=== PATIENT | female | born 1950 | race American Indian/Alaskan Native ===

== ENCOUNTER 2016-10-09 11:15 | Day surgery (SDC) | payer OTHER ==
[~2016-10-09 11:15] MED LIST: ANCEF/STERILE WATER 2 GM/20 ML IV NR; NACL 0.9% 1000 ML 1,000 ML IV SCH; NACL 0.9% IR ONE; PEPCID PO NR
--- NOTE | 2016-10-09 12:19 | Anesthesia Consultation ---
Anesthesia Consult and Med Hx Date of service: 10/09/16 - Airway Anesthetic Teeth Evaluation: Dentures ROM Head & Neck: Adequate Mental/Hyoid Distance: Adequate Mallampati Class: Class II Intubation Access Assessment: Probably Good - Pulmonary Exam CTA: Yes - Cardiac Exam Cardiac Exam: RRR - Pre-Operative Health Status ASA Pre-Surgery Classification: ASA2 Proposed Anesthetic Plan: General - Pulmonary Hx Smoking: Yes (STOPPED X 20 YRS- 1/2PPD X 13 YRS) Hx Sleep Apnea: No (PRISCILLA PRE SCREEN LOW RISK) - Cardiovascular System Hx Hypertension: Yes (X 5 YRS) - Endocrine Hx Non-Insulin Dependent Diabetes: Yes - Other Systems Hx Cancer: No
--- NOTE | 2016-10-09 12:19 | Anesthesia Day of Surgery ---
Anesthesia Day of Surgery - Day of Surgery Patient Examined: Yes Patient H&P Reviewed: Yes Patient is NPO: Yes
[2016-10-09] MEDS ORDERED: DIPRIVAN 10 MG/ML IV ONE (12:45)
[2016-10-09] MEDS ORDERED: ZEMURON IV ONE (12:45)
[2016-10-09] MEDS ORDERED: XYLOCAINE MPF 2% ONE (12:45)
[2016-10-09] MEDS ORDERED: VERSED IV NR (13:00)
[2016-10-09] MEDS ORDERED: PEPCID PO NR (13:00)
[2016-10-09] MEDS ORDERED: NEO SYNEPHRINE/NS Syringe(OR USE) IV ONE (13:00)
[2016-10-09] MEDS ORDERED: DILAUDID ONE (13:08)
[2016-10-09] MEDS ORDERED: MARCAINE-EPI/PF 0.25%-1:200,000 INFILTRATI ONE (13:13)
[2016-10-09] MEDS ORDERED: DECADRON ONE (13:44)
[2016-10-09] MEDS ORDERED: MARCAINE-EPI 0.25%-1:200,000 INFILTRATI ONE ×2 (13:50)
[2016-10-09] MEDS ORDERED: NACL 0.9% 1000 ML 1,000 ML ONE (14:02)
[2016-10-09] MEDS ORDERED: ZOFRAN ONE (14:13)
[2016-10-09] MEDS ORDERED: TORADOL ONE (14:38)
[2016-10-09] MEDS ORDERED: NACL 0.9% IR ONE (14:43)
[2016-10-09] MEDS ORDERED: ROBINUL ONE (14:44)
[2016-10-09] MEDS ORDERED: BLOXIVERZ ONE (14:44)
--- NOTE | 2016-10-09 14:54 | Operative Report ---
Operative Report Operative Report: [Date of procedure: 10/09/2016 Pre-operative diagnosis: Incarcerated ventral hernia 2 Post-operative diagnosis: Same Procedure name(s): Laparoscopic ventral hernia repair with mesh 2 Surgeon: Ray Eng MD Singer And Unloader: None Anesthesia: General, 0.25% Marcaine EBL: Minimal Complications: None Instrument Count: Correct Indications: This is a 66 -year-old patient presents with a incarcerated ventral hernia 2 that is now causing symptoms. The patient was offered the above-named procedures possible treatment modality. The risks and benefits discussed until all questions were answered. The patient was subsequent brought to the OR. Findings: As above Procedure: The patient was placed supine on the table. We reviewed the informed consent. After adequate anesthesia. Patient was prepped and draped in the usual sterile fashion. A 5 mm incision was made in the right quadrant. Using Optiview technique we placed a 5 mm port at this position. The abdomen was then insufflated to 15 mm mercury. We introduced the camera and examined the abdomen. We began examining the defect. At this time we placed a 10 mm right lower quadrant port under direct vision and after infiltration of local anesthetic. A 5 mm left upper quadrant port was also placed. We then decreased the intra-abdominal pressure. The defects were identified. The most superior was noted to be at the level of the falciform ligament. This contained falciform ligament fat that was attached to the peritoneal surface. It was also noted to be incarcerated. Using a combination of external pressure and internal retraction, we partially reduced the contents. Electrocautery was used to lyse the attachments freeing the hernia sac. The inferior hernia was noted to have minimal attachments and this was reduced with minimal difficulty. We then chose a 6 x 8" proceed mesh with a central 0 Vicryl transfascial stitch. This was introduced into the abdomen through the 10 mm port. We used a suture passer to center the mesh over the middle of the defects, effectively straddling both hernias. We used a suture to approximate the most superior hernia. We then secured the edges of the mesh using a pro-tack device. A double crown technique was used to place the tacks. We had good coverage of the hernia defect. We then evacuated the insufflation. Removed all ports and closed all port sites using a 4-0 Monocryl in a subcuticular fashion. The patient tolerated the procedure well. The patient was awakened, extubated, and transferred to PACU in no apparent distress.]
--- NOTE | 2016-10-09 14:57 | Short Stay Summary ---
Short Stay Documentation Date of service: 10/09/16 - Allergies and Medications Current Medications: Allergies No Known Allergies Allergy (Verified 10/02/16 17:01) Home Medications Medication Instructions Recorded Confirmed Last Taken Type Aspirin [Adult Low Dose Aspirin EC] 81 mg PO DAILY 10/02/16 10/09/16 10/02/16 History Lisinopril [Zestril] 40 mg PO DAILY 10/02/16 10/09/16 10/09/16 History Meclizine [Antivert] 25 mg PO TID PRN 10/02/16 10/09/16 10/09/16 History Metformin HCl [Glucophage] 1,000 mg PO BID 10/02/16 10/09/16 10/09/16 History Grimes-3 Fatty Acids/Fish Oil [Fish 1,000 mg PO DAILY 10/02/16 10/09/16 10/02/16 History Oil] Omeprazole 40 mg PO DAILY 10/02/16 10/09/16 10/08/16 History glipiZIDE [Glucotrol] 5 mg PO QDAY 10/02/16 10/09/16 10/09/16 History Active Medications Cefazolin Sodium (Ancef/Sterile Water 2 Gm/20 Ml) 2 gm IV PREOP NR Stop: 10/09/16 23:00 Famotidine (Pepcid) 20 mg PO PREOP NR Stop: 10/10/16 12:59 Last Admin: 10/09/16 12:55 Dose: 20 mg Hydromorphone HCl (Dilaudid) 0.5 mg IV Q10MIN PRN PRN Reason: Pain , Severe (7-10) Stop: 10/09/16 23:59 Sodium Chloride (Nacl 0.9% 1000 Ml) 1,000 mls @ 75 mls/hr IV DIRECT SANTA Last Admin: 10/09/16 12:55 Dose: 75 mls/hr Midazolam HCl (Versed) 2 mg IV PREOP NR Stop: 10/09/16 23:59 Last Admin: 10/09/16 12:58 Dose: 2 mg - Brief post op/procedure progress note Date of procedure: 10/09/16 Pre-op diagnosis: incarcerated ventral hernia 2 Post-op diagnosis: same Procedure: Laparoscopic incarcerated ventral hernia repair 2 with mesh Anesthesia: GETA, local Findings: As above Surgeon: VIRGINIE GIBBS Estimated blood loss: minimal Pathology: none Condition: stable - Disposition Condition at discharge: Stable Disposition: DC-01 TO HOME OR SELFCARE Short Stay Discharge Plan Activity: advance as tolerated Diet: regular Follow up with: DR KAITLYN [Other] - 7 Days VIRGINIE GIBBS MD [Staff Physician] - 7 Days Prescriptions: oxyCODONE /ACETAMINOPHEN [Percocet 5/325] 1 tab PO Q6HR PRN #30 tablet PRN Reason: Pain
[2016-10-09] MEDS ORDERED: PROVENTIL IH ONE (15:16)
[2016-10-09] MEDS ORDERED: S2 RACEPINEPHRINE 2.25% IH ONE (15:20)
[2016-10-09] MEDS: DILAUDID IV PRN ×2 (15:30→15:40)
[2016-10-09] MEDS ORDERED: PERCOCET 5/325 PO ONE (17:00)
[2016-10-09] MEDS ORDERED: ZOFRAN IV ONE (18:23)
[2016-10-09] MEDS ORDERED: TRANSDERM-SCOP TD ONE (18:23)
[2016-10-09 19:50] VITALS: BP 118/70
--- NOTE | 2016-10-09 22:09 | Post Anesthesia Evaluation ---
- Post Anesthesia Evaluation Patient Participated: Yes Airway Patent: Yes Stable Respiratory Function: Yes Nausea/Vomiting: No Temp > 96.8F: Yes Pain Manageable: Yes Adequeate Hydration: Yes Anesthesia Complications: No Block Receding Appropriately: Not Applicable Patient on Ventilator: No
== END 2016-10-09 19:45 | disposition home or self-care (01) ==
LOC: OR 11:15
PROVIDERS: ATTEND Surgery
DX: K43.6 Other and unspecified ventral hernia with obstruction, without gangrene (principal); I10 Essential (primary) hypertension; E11.9 Type 2 diabetes mellitus without complications; K21.9 Gastro-esophageal reflux disease without esophagitis; Z79.82 Long term (current) use of aspirin; Z79.899 Other long term (current) drug therapy; Z79.84 Long term (current) use of oral hypoglycemic drugs; Z87.891 Personal history of nicotine dependence
CPT/HCPCS: 49653; 82962; C1781; J1100; J1170; J1885; J2250; J2370; J2405; J2704; J2710; J7030